=== PATIENT | male | born 1970 | race Caucasian/White ===

== ENCOUNTER 2021-03-07 12:52 | Outpatient (CLI) | payer OTHER, SELFPAY ==
--- NOTE | ~2021-03-07 | MR_ITS ---
EXAMINATION: MR cervical spine wo/w con EXAM DATE: 03/07/2021 15:48 INDICATION: Cervical radiculopathy, effusion. TECHNIQUE: Multi-sequential, multiplanar MR images of the cervical spine were obtained without contra st. Axial T2, axial T2 MERGE sequence. Sagittal T1, T2, T2 fat saturation images also obtained. Axi al T1 weighted sequence. Patient was then injected with 19 mL Multihance intravenous contrast and re imaged. Postcontrast axial and sagittal T1-weighted fat saturation sequences were obtained. Compar tejinder is made to prior examination from 10/25/2017. FINDINGS: There is been interval anterior and interbody fusion at the C5-6 level. There is been impr ovement in the canal diameter at the fused level. Mild congenitally narrow cervical spinal canal. Cer vicomedullary junction is normal in appearance. No spinal cord edema. There are no suspicious marrow signal abnormalities. The vertebral bodies are aligned in the AP dimension. Mild diffuse cervical dis c disease. There are no areas of abnormal enhancement on the post contrast images. Level by level evaluation: C2-C3: There is a mild diffuse disc bulge. Uncovertebral joint arthropathy: Mild right. Facet joint arthropathy: Mild to moderate bilateral. Neural foraminal stenosis: Mild bilateral. Central canal stenosis: Mild . C3-C4: There is a mild to moderate diffuse disc bulge. Uncovertebral joint arthropathy: None. Facet joint arthropathy: Mild to moderate bilateral. Neural foraminal stenosis: Mild bilateral. Central canal stenosis: Mild to moderate, cord being indented without signal change, without edema . Central canal measures 7 mm in mid sagittal AP diameter . C4-C5: There is a mild diffuse disc bulge. Uncovertebral joint arthropathy: Mild bilateral. Facet joint arthropathy: Mild to moderate bilateral. Neural foraminal stenosis: No stenosis. Central canal stenosis: Mild. C5-C6: This level is fused. Uncovertebral joint arthropathy: Fused. Facet joint arthropathy: Partially fused. Neural foraminal stenosis: No stenosis. Central canal stenosis: No stenosis. C6-C7: There is a mild diffuse disc bulge. Uncovertebral joint arthropathy: Mild bilateral. Facet joint arthropathy: Mild bilateral. Neural foraminal stenosis: Mild bilateral. Central canal stenosis: Mild . C7-T1: There is a mild diffuse disc bulge. Uncovertebral joint arthropathy: Mild to moderate. Facet joint arthropathy: Mild to moderate. Neural foraminal stenosis: Mild bilateral. Central canal stenosis: Mild. IMPRESSION: 1. Interval C5-6 fusion. 2. Mild to moderate cervical spondylosis superimposed on congenitally narrow spinal canal. Reviewed, dictated and finalized at location A. NESS TECHNOLOGY TEACHER IMPRESSION: 1. Interval C5-6 fusion. 2. Mild to moderate cervical spondylosis superimposed on congenitally narrow s rubén canal.
--- NOTE | ~2021-03-07 | MR_ITS ---
EXAMINATION: MR thoracic spine wo/w con EXAM DATE: 03/07/2021 15:48 INDICATION: Chronic mid back pain, increasing intensity. TECHNIQUE: Multi-sequential, multiplanar MR images of the thoracic spine were obtained without contra st. Sagittal T1, T2, T2 fat saturation, axial T2 weighted images reviewed. Axial T1 weighted sequenc e. Patient was then injected with 19 mL Multihance intravenous contrast and reimaged. Postcontrast axial and sagittal T1-weighted fat saturation sequences were obtained. There are no prior studies for comparison. FINDINGS: There is mild to moderate scattered thoracic spondylosis, with small disc bulges and protru sions, mild to moderate right-sided upper thoracic neural foraminal stenosis. No more than mild centr al canal or neural foraminal stenosis at other thoracic levels. The spinal cord signal intensity and intrinsic morphology is normal. Mild to moderate thoracic facet arthropathy. There are no suspicious marrow signal abnormalities. The vertebral bodies are aligned in the AP dimension. There are no are as of abnormal enhancement on the post contrast images. IMPRESSION: Mild/moderate thoracic spondylosis. No acute findings. Reviewed, dictated and finalized at location A. SEAT COVER INSTALLER
--- NOTE | ~2021-03-07 | MR_ITS ---
EXAMINATION: MR lumbar spine wo/w con DATE: 03/07/2021 15:48 INDICATION: Low back pain. TECHNIQUE: Magnetic resonance imaging (MRI) of the lumbar spine was performed without and with 19 mL MultiHance intravenous contrast. Sequences included sagittal T2-weighted FSE, sagittal T2-weighted FS FSE, sagittal T1-weighted FSE, and axial T2-weighted FSE. COMPARISON: Lumbar spine MRI 10/25/2017 FINDINGS: There is 10 degrees levoscoliosis of lumbar spine. There is 4 mm anterolisthesis of L5 on S 1. There are Schmorl's nodes at most levels. There is chronic anterior wedging of T11-L2 vertebral radha dies. There is mildly decreased disc height from T12-L1 through L4-L5 and moderately decreased disc h eight at L5-S1. At L3-L4, there is increased T2-weighted signal intensity in the disc with areas of d isc enhancement. There is increased T2-weighted signal intensity and contrast enhancement involving t he endplates at L3-L4. There is increased T2-weighted signal intensity and contrast enhancement invol ving the adjacent bilateral psoas muscles with small areas of nonenhancement measuring up to 4.8 x 0. 6 cm on the left side, consistent with abscesses. There is increased T2-weighted signal intensity and contrast enhancement involving the erector spinae muscles, right worse than left. The distal spinal cord signal intensity is normal. The conus medullaris is at L1. The following disc levels are specifi farhana discussed: L1-L2: The disc is bulging. There is mild bilateral facet joint osteoarthritis. There is mild left ne ural foraminal stenosis. There is mild central canal stenosis. L2-L3: The disc is bulging with superimposed right central extrusion. There is mild bilateral facet j oint osteoarthritis. There is mild right neural foraminal stenosis. There is mild central canal steno sis. L3-L4: The disc is bulging. There is mild bilateral facet joint osteoarthritis. There is moderate rig ht and mild left neural foraminal stenosis. There is mild central canal stenosis. L4-L5: The disc is bulging. There is mild bilateral facet joint osteoarthritis. There is moderate jeremiah ateral neural foraminal stenosis. There is mild central canal stenosis. L5-S1: The disc is bulging. There is moderate bilateral facet joint osteoarthritis. There is mild rig ht and moderate left neural foraminal stenosis. There is mild central canal stenosis. IMPRESSION: 1. Discitis/osteomyelitis at L3-L4 with paraspinal myositis including small bilateral psoas muscle ab scesses. 2. Moderate lumbar spondylosis. Reviewed, dictated and finalized at location A. THE HORIZON TARGETING SUPERVISOR IMPRESSION: 1. Discitis/osteomyelitis at L3-L4 with paraspinal myositis including small jeremiah ateral psoas muscle abscesses. 2. Moderate lumbar spondylosis.
[2021-03-07 13:42] LABS: Estimated Glomerular Filt Rate > 60
== END 2021-03-07 12:53 | disposition home or self-care (01) ==
PROVIDERS: PCP Internal Medicine
DX: M47.896 Other spondylosis, lumbar region (principal); M47.894 Other spondylosis, thoracic region; M47.22 Other spondylosis with radiculopathy, cervical region; Z98.1 Arthrodesis status
CPT/HCPCS: 72156; 72157; 72158; A9577

== ENCOUNTER 2021-03-08 19:37 | Emergency (ER) | payer OTHER, SELFPAY ==
[2021-03-08 19:51] VITALS: BP 143/68; PULSE 96; RESP 20; TEMP 36.7; O2SAT 100
[2021-03-08 20:47] LABS: Basophils Absolute Auto 0.1 K/mm3 (0.0-0.1); Basophils Percent Auto 0.6 % (0.2-1.2); Eosinophils Absolute Auto 0.2 K/mm3 (0-0.3); Eosinophils Percent Auto 2.5 % (0-4.4); Hematocrit 38.9 % (42.0-52.0); Hemoglobin 12.9 g/dL (14.0-18.0); Immature Granulocyte Absolute 0.06 K/mm3 (0.00-0.031); Immature Granulocyte Percent A 0.7 % (0-0.5); Lymphocytes Absolute Auto 0.75 K/mm3 (0.9-3.2); Lymphocytes Percent Auto 8.9 % (18.3-44.2); Mean Corpuscular HGB Conc 33.2 g/dl (32-36); Mean Corpuscular Hemoglobin 27.9 pg (26-34); Mean Platelet Volume 9.7 fl (7.4-10.4); Monocytes Absolute Auto 0.5 K/mm3 (0.1-0.6); Monocytes Percent Auto 5.6 % (2.6-8.5); Neutrophils Absolute Auto 6.9 K/mm3 (1.3-6.7); Neutrophils Percent Auto 81.7 % (45.5-73.1); Platelet Count Result 161 k/mm3 (150-375); Red Blood Count 4.63 M/mm3 (4.6-6.20); Red Cell Distribution Width 14.9 % (11.5-14.5); White Blood Count 8.4 K/mm3 (4.5-10.0)
[2021-03-08] MEDS: HYDROmorphone HCL INJ (*CRX) 1 MG/ML SYR 0.5 MG IV PUSH (20:54)
[2021-03-08] MEDS: ONDANSETRON INJ 4 MG/2 ML VIAL IV PUSH (20:55)
[2021-03-08 21:00] VITALS: BP 122/70; PULSE 94; RESP 18; O2SAT 98
[2021-03-08 21:13] LABS: Alanine Aminotransferase 12 U/L (4-50); Albumin Level 3.9 g/dL (3.5-5.1); Alkaline Phosphatase 102 U/L (38-126); Anion Gap 9 mmol/L (8-16); Aspartate Amino Transferase 19 U/L (17-59); Bilirubin,Total 0.3 mg/dL (0.2-1.3); Blood Urea Nitrogen 9 mg/dL (9-20); Calcium 9.4 mg/dL (8.4-10.2); Carbon Dioxide 29 mmol/L (22-30); Chloride 97 mmol/L (98-107); Estimated CRCL calculation 97 ml/min; Estimated Glomerular Filt Rate > 60; Glucose 153 mg/dL (65-110); Potassium 3.7 mmol/L (3.4-5.0); Sodium 135 mmol/L (137-145)
[2021-03-08 21:22] LABS: Lactic Acid Reflex 1.1 mmol/L (0.7-2.1)
[2021-03-08] MEDS: HYDROmorphone HCL INJ (*CRX) 1 MG/ML SYR IV PUSH (21:54)
[2021-03-08 22:00] VITALS: BP 113/71; PULSE 97; RESP 20; O2SAT 97
[2021-03-08 22:33] LABS: EDCOVIDSCREEN Negative (Negative)
[2021-03-08 23:17] VITALS: BP 121/82; PULSE 108; RESP 18; O2SAT 97
--- NOTE | 2021-03-09 00:06 | PC.NURSE ---
Pt requesting pain medications RN did ask MD for additional medications.
--- NOTE | 2021-03-09 00:47 | PC.NURSE ---
RN made aware by [facility] that Dr. Harper is accepting patient potential wait time is 6 days. Pt and charge nurse made aware.
--- NOTE | 2021-03-09 01:20 | ED.BACK ---
HPI - Back Pain/Injury General Chief Complaint: Back Pain/Injury <Adan Borges MD - Last Filed: 03/09/21 01:34> Stated Complaint: lower back pain <Adan Borges MD - Last Filed: 03/09/21 01:34> Time Seen by Provider: 03/08/21 20:19 <Adan Borges MD - Last Filed: 03/09/21 01:34> Source: patient <Adan Borges MD - Last Filed: 03/09/21 01:34> Mode of arrival: ambulatory <Adan Borges MD - Last Filed: 03/09/21 01:34> Limitations: no limitations <Adan Borges MD - Last Filed: 03/09/21 01:34> History of Present Illness HPI Narrative: Also 50-year-old with a history of hypertension, diabetes here with complaints of having low back.. Patient states that he had an MRI this morning and was diagnosed with osteomyelitis of his L3-L4. Patient states he has seen Dr. Cruz at [facility] and was advised him to go to [facility] however patient decided to come to [facility]. He presently denies any fever or chills. Denies any bladder or bowel incontinence. He denies any unusual tingling numbness. <Adan Borges MD - Last Filed: 03/09/21 01:34> MD elicited complaint: back pain <Adan Borges MD - Last Filed: 03/09/21 01:34> Pertinent past history: prior back pain <Adan Borges MD - Last Filed: 03/09/21 01:34> Onset (ago): month(s) <Adan Borges MD - Last Filed: 03/09/21 01:34> Timing: constant <Adan Borges MD - Last Filed: 03/09/21 01:34> Severity: moderate <Adan Borges MD - Last Filed: 03/09/21 01:34> Similar Symptoms Previously: Yes <Adan Borges MD - Last Filed: 03/09/21 01:34> Quality: dull <Adan Borges MD - Last Filed: 03/09/21 01:34> Location: lumbar spine <Adan Borges MD - Last Filed: 03/09/21 01:34> Radiation: none <Adan Borges MD - Last Filed: 03/09/21 01:34> Exacerbating factors: none <Adan Borges MD - Last Filed: 03/09/21 01:34> Associated symptoms: denies other symptoms <Adan Borges MD - Last Filed: 03/09/21 01:34> Related Data Home Medications: Home Medications Medication Instructions Recorded Confirmed furosemide DAILY 03/09/21 gabapentin TID 03/09/21 metformin mg BID 03/09/21 <Adan Borges MD - Last Filed: 03/09/21 01:34> Allergies/Adverse Reactions: Allergies Allergy/AdvReac Type Severity Reaction Status Date / Time amoxicillin Allergy Unknown Itching Verified 03/08/21 20:00 ketorolac Allergy Unknown Severe Rash Verified 08/23/16 11:14 tramadol Allergy Unknown Severe Verified 08/23/16 11:14 Rash and Hives <Adan Borges MD - Last Filed: 03/09/21 01:34> Review of Systems Review of Systems: All systems reviewed & are unremarkable except as noted in HPI and below <Adan Borges MD - Last Filed: 03/09/21 01:34> Constitutional: Constitutional: Reports no additional constitutional complaints <Adan Borges MD - Last Filed: 03/09/21 01:34> Eyes: Eyes: Reports no additional eye complaints <Adan Borges MD - Last Filed: 03/09/21 01:34> ENT: Reports system reviewed and no additional complaints, except as documented <Adan Borges MD - Last Filed: 03/09/21 01:34> Cardiovascular: Cardiovascular: Reports no additional cardiovascular complaints <Adan Borges MD - Last Filed: 03/09/21 01:34> Respiratory: Respiratory: Reports no additional respiratory complaints <MD Ray Lord Last Filed: 03/09/21 01:34> Gastrointestinal: Gastrointestinal: Reports no additional gastrointestinal complaints <MD Ray Lord Last Filed: 03/09/21 01:34> Musculoskeletal: Musculoskeletal: Reports as per HPI <Adan Borges MD - Last Filed: 03/09/21 01:34> Neurologic: Reports system reviewed and no additional complaints, except as documented <Adan Borges MD - Last Filed: 03/09/21 01:34> PMFSH Family History Family History: Family History (Reviewed 03/09/21 @ 01:29 by Adan Vora
[2021-03-09 02:07] VITALS: BP 154/80; PULSE 96; RESP 15; O2SAT 94
[2021-03-09] MEDS: HYDROmorphone HCL INJ (*CRX) 1 MG/ML SYR 0.5 MG IV PUSH ×2 (03:05→09:29)
[2021-03-09 04:33] VITALS: BP 135/75; PULSE 99; RESP 20; O2SAT 95
[2021-03-09 06:57] VITALS: PULSE 96; RESP 14; O2SAT 95
[2021-03-09 07:24] VITALS: BP 127/72
[2021-03-09 09:50] LABS: EDCOVIDSCREEN Negative (Negative)
[2021-03-09 09:59] VITALS: TEMP 36.7
[2021-03-09 11:55] LABS: Glucose Point of Care 163 mg/dl (65-105)
--- NOTE | 2021-03-09 13:46 | PC.NURSE ---
upon arrival to exam room, patient states the he is having a friend come and pick him up to go be seen at [facility]. Due to patient leaving and wanting to go to [facility] via personal vehicle, Dilaudid not given and wasted in pyxis.
[2021-03-09 15:01] VITALS: BP 127/72; PULSE 89; RESP 18
== END 2021-03-09 15:04 | disposition left against medical advice (07) ==
PROVIDERS: Family Medicine; Emergency Provider Emergency Medicine
DX: M46.26 Osteomyelitis of vertebra, lumbar region (principal); Z20.822 Contact with and (suspected) exposure to COVID-19
CPT/HCPCS: 36415; 80053; 82948; 83605; 85025; 86140; 87040; 87077; 87186; 87426; 96374; 96375; 96376; 99284; C9803; J1170; J2405

== ENCOUNTER 2021-06-01 12:36 | Emergency (ER) | payer OTHER, SELFPAY ==
[2021-06-01] VITALS (19 sets, daily range): BP systolic 113–132; BP diastolic 70–83; PULSE 74–84; RESP 13–25; TEMP 36.9; O2SAT 95–100
--- NOTE | ~2021-06-01 | CT_ITS ---
EXAMINATION: CT abdomen pelvis w con DATE: 06/01/2021 14:27 INDICATION: Psoas abscess presenting with worsening abdominal pain. TECHNIQUE: Computed tomography (CT) of the abdomen and pelvis was performed with 100 mL Omnipaque-350 intravenous contrast. Automated exposure control and iterative reconstruction technique were employe d. The dose-length product was 948.07 mGy-cm. COMPARISON: None FINDINGS: Heart size is normal. Atherosclerotic coronary artery calcification. No pericardial or pleural effusi on. Elevation the right hemidiaphragm. Groundglass and irregular interstitial opacities at the periph leonor of the bilateral lower lungs greatest in the right middle and lower lobes where there are some laura rgical bronchiectasis and peripheral honeycombing most consistent with usual interstitial pneumonia ( UIP) pattern chronic interstitial lung disease. Liver surface nodularity consistent with cirrhosis. S mall calcified gallstone in the dependent aspect of the otherwise normal-appearing gallbladder. Splen omegaly measuring 15.2 cm craniocaudal length. Pancreas and bilateral adrenal glands are normal. Bila teral subcentimeter low-attenuation likely renal cysts which are too small to definitively characteri ze. Bowels including the appendix are normal. There is calcified atherosclerosis of the aorta and man y of the other arteries. Bladder is normal. No free intraperitoneal gas or fluid. No pathologically e nlarged abdominal or pelvic lymphadenopathy. Interval progression of osteolysis with vertebral body height loss and irregular endplate margins klarissa tered at L3-L4 consistent with progression of previous noted discitis and osteomyelitis. No evident a bscess. There are several chronic compression fractures with mild anterior wedging at T11-L1, large c entral endplate compression fracture/Schmorl's node along the superior endplate of L2 and superior en dplate compression fracture with mild central vertebral body height loss at L5. Moderate lumbar spond ylosis. IMPRESSION: 1. Chronic L3-L4 discitis and osteomyelitis with progression of osteolysis and height loss at both th e L3 and L4 vertebral bodies. No evident abscesses. 2. Cirrhosis. 3. Cholelithiasis. 4. Nonspecific splenomegaly. 5. Mild UIP pattern chronic interstitial lung disease in the bilateral lower lungs. Reviewed, dictated and finalized at location A. ICAL/MOBILE WATCH OFFICER IMPRESSION: 1. Chronic L3-L4 discitis and osteomyelitis with progression of osteolysis and height loss at both the L3 and L4 vertebral bodies. No evident abscesses. 2. Cirrhosis. 3. Cholelithiasis. 4. Nonspecific splenomegaly. 5. Mild UIP pattern chronic interstitial lung disease in the bilateral lower damon ngs.
--- NOTE | ~2021-06-01 | XR_ITS ---
EXAMINATION: XR chest 2V DATE: 06/01/2021 14:34 INDICATION: Shortness of breath TECHNIQUE: PA and lateral views of the chest were obtained. COMPARISON: Abdomen MRI dated 12/29/2011 FINDINGS: Chronic elevation of the right hemidiaphragm. Fine reticular pattern at the right lung base with appe arance on prior CT of the abdomen and pelvis favoring UIP pattern chronic interstitial lung disease w ith additional disease at the left lung base on CT which is indiscernible on the plain radiographs. N o pleural effusion or pneumothorax. The cardiomediastinal silhouette is normal. Instrumented lower ce rvical anterior spinal fusion. Mild thoracic spondylosis. IMPRESSION: 1. Chronic elevation of the right hemidiaphragm. 2. Mild right-sided predominant bibasilar chronic interstitial lung disease. Reviewed, dictated and finalized at location A. PROCESSING MACHINE OPERATOR
--- NOTE | 2021-06-01 12:46 | PC.NURSE ---
patient received 4mg of morphine on rout
--- NOTE | 2021-06-01 13:04 | PC.NURSE ---
patient states, I need something really strong for pain right now
[2021-06-01] MEDS: MORPHINE SULFATE (*CRX) 4 MG/ML INJ IV PUSH ×3 (13:23→15:44)
--- NOTE | 2021-06-01 13:47 | ED.BACK ---
HPI - Back Pain/Injury General Chief Complaint: Back Pain/Injury Stated Complaint: BACK PAIN Time Seen by Provider: 06/01/21 13:02 Source: patient History of Present Illness HPI Narrative: Patient presents with low back pain. Patient reports a history of osteomyelitis in his L-spine he is currently on antibiotics and see his spine surgeon Dr. [facility]. Reports has had increasing pain in his low back over the past several days much worse last night. Also reports last night he started having some shortness of breath. Patient also reports paresthesias in his bilateral lower extremity. His pain is achy, constant, worse with moving his back, no radiation Related Data Home Medications Medication Instructions Recorded Confirmed furosemide DAILY 03/09/21 gabapentin TID 03/09/21 metformin mg BID 03/09/21 Allergies Allergy/AdvReac Type Severity Reaction Status Date / Time amoxicillin Allergy Unknown Itching Verified 06/01/21 12:42 ketorolac Allergy Unknown Severe Rash Verified 06/01/21 12:42 tramadol Allergy Unknown Severe Verified 06/01/21 12:42 Rash and Hives Review of Systems Review of Systems: CONSTITUTIONAL: Denies fever, chills, or sweats. EYES: Denies visual changes, redness, or discharge. ENT: Denies rhinorrhea, congestion, sore throat, or otalgia. CARDIOVASCULAR: Denies chest pain, palpitations, or edema. RESPIRATORY: Reports shortness of breath GASTROINTESTINAL: Denies abdominal pain, nausea, vomiting, or diarrhea. GENITOURINARY: Denies dysuria or hematuria. SKIN: Denies rash or itching. MUSCULOSKELETAL: Denies joint pain, or myalgia. NEUROLOGIC: Denies headache, dizziness, or weakness. PSYCHIATRIC: Denies anxiety or depression. All systems reviewed & are unremarkable except as noted in HPI and below [facility] Past Medical History Medical History (Updated 06/01/21 @ 15:47 by Gary Lima MD) Discitis Family History Family History Mother Family history of lung cancer Family history of malignant neoplasm, Onset Age: 63 Father Family history of lung cancer, Onset Age: 84 Social History Social History Smoking status: Heavy tobacco smoker Second hand tobacco smoke exposure: Yes Alcohol intake: never Exam Narrative: GENERAL: Well-appearing, well-nourished, and in no acute distress. HEAD: Normocephalic, atraumatic. EYES: PERRLA and EOMI. ENT: Nares clear, no rhinorrhea or epistaxis. Mucous membranes moist. NECK: Supple. No masses. No JVD CHEST: Clear to auscultation. No respiratory distress. No wheezes rales or rhonchi HEART: Regular rate and rhythm. No murmur heard. Normal peripheral pulses. ABDOMEN: Soft, nontender, nondistended, normal active bowel sounds. BAKC: Diffuse low back pain in the L-spine without focal bony tenderness EXTREMITIES: Normal range of motion. No edema. SKIN: Warm, dry, no rash. NEURO: 5 out of 5 strength in the bilateral lower extremities sensation intact to light touch in the lower extremity alert and oriented x3. PSYCH: Normal mood and affect. Course Reevaluation(s) Reevaluation #1: Patient reports feeling much improved after supportive therapies. Case cussed with his surgical team at [facility]. Given imaging findings and laboratory work-up there i does not appear to be acute complications from his chronic condition. Given his improvement he is appropriate for continued outpatient supportive therapies. Patient has outpatient follow-up with his spine team at [facility]. Patient is comfortable with the outpatient plan. Date: 06/01/21 Time: 15:43 Vital Signs Vital signs: Vital Signs Temperature 36.9 C 06/01/21 12:42 Pulse Rate 79 06/01/21 12:42 Respiratory Rate 18 06/01/21 12:42 Blood Pressure 125/76 06/01/21 12:42 Pulse Oximetry 100 06/01/21 12:42 Temperature 36.9 C 06/01/21 16:04 Pulse Rate 76
[2021-06-01 13:58] LABS: Basophils Percent Auto 0.4 % (0.2-1.2); Eosinophils Absolute Auto 0.1 K/mm3 (0-0.3); Eosinophils Percent Auto 1.2 % (0-4.4); Hematocrit 42.7 % (42.0-52.0); Hemoglobin 14.5 g/dL (14.0-18.0); Immature Granulocyte Absolute 0.05 K/mm3 (0.00-0.031); Immature Granulocyte Percent A 0.6 % (0-0.5); Lymphocytes Absolute Auto 0.86 K/mm3 (0.9-3.2); Mean Corpuscular Hemoglobin 28.8 pg (26-34); Mean Corpuscular Volume 84.7 fl (80-100); Mean Platelet Volume 9.5 fl (7.4-10.4); Monocytes Absolute Auto 0.5 K/mm3 (0.1-0.6); Monocytes Percent Auto 6.7 % (2.6-8.5); Neutrophils Absolute Auto 6.2 K/mm3 (1.3-6.7); Neutrophils Percent Auto 80.1 % (45.5-73.1); Platelet Count Result 222 k/mm3 (150-375); Red Blood Count 5.04 M/mm3 (4.6-6.20); Red Cell Distribution Width 15.4 % (11.5-14.5); White Blood Count 7.8 K/mm3 (4.5-10.0)
[2021-06-01 14:10] LABS: Alanine Aminotransferase 13 U/L (4-50); Albumin Level 4.4 g/dL (3.5-5.1); Alkaline Phosphatase 124 U/L (38-126); Anion Gap 7 mmol/L (8-16); Aspartate Amino Transferase 25 U/L (17-59); Bilirubin,Total 0.5 mg/dL (0.2-1.3); Blood Urea Nitrogen 11 mg/dL (9-20); Calcium 9.8 mg/dL (8.4-10.2); Carbon Dioxide 23 mmol/L (22-30); Chloride 106 mmol/L (98-107); Estimated CRCL calculation 99 ml/min; Estimated Glomerular Filt Rate > 60; Glucose 133 mg/dL (65-110); Potassium 4.2 mmol/L (3.4-5.0); Sodium 136 mmol/L (137-145)
[2021-06-01 14:11] LABS: Lactic Acid Reflex 1.4 mmol/L (0.7-2.1)
[2021-06-01 14:14] LABS: CRP 0.9 mg/dL (<1.0)
[2021-06-01 14:21] LABS: Add Urine Microscopic? YES; Appearance Urine Clear (Clear); Bilirubin Urine Negative (Negative); Blood Urine Negative (Negative); Color Urine Yellow (Yellow); Glucose Urine UA 3+ mg/dL (Negative); Ketones Urine Negative (Negative); Leukocyte Esterase Ur Negative LEU/UL (Negative); Nitrate Urine Negative (Negative); Protein Urine 2+ mg/dL (Negative); RBC Urine 0-2 /hpf (0-2); Specific Grav Ur 1.023 (1.001-1.035); Urobilinogen Urine Negative mg/dL (<2.0); WBC Urine 0-3 /hpf
[2021-06-01 14:25] LABS: Erythrocyte Sedimentation Rate 44 mm/hr (0-20)
== END 2021-06-01 16:04 | disposition home or self-care (01) ==
PROVIDERS: Emergency Provider Emergency Medicine
DX: M46.46 Discitis, unspecified, lumbar region (principal); M46.26 Osteomyelitis of vertebra, lumbar region; F17.200 Nicotine dependence, unspecified, uncomplicated; K74.60 Unspecified cirrhosis of liver; K80.20 Calculus of gallbladder without cholecystitis without obstruction; R16.1 Splenomegaly, not elsewhere classified; J84.9 Interstitial pulmonary disease, unspecified
CPT/HCPCS: 36415; 71046; 74177; 80053; 81001; 83605; 85025; 85652; 86140; 96374; 96376; 99284; J2270; Q9967